=== PATIENT | female | born 1950 | race Caucasian/White ===

== ENCOUNTER 2022-06-07 12:09 | Inpatient (IN) | payer MEDICARE, MEDICAID ==
[~2022-06-07] VITALS: Ht 165.1 cm; Wt 68.7 kg
[~2022-06-07 12:09] MED LIST: CLOZ100T68 PO; DIVA-112 PO; LITH300T4 PO; NOCURR; PARO40TA PO; RISP1TAB48 PO; RISP4TAB73 PO
[2022-06-07] MEDS ORDERED: AMLO-257 PO (14:01)
[2022-06-07] MEDS ORDERED: RISP1SOL11 PO (14:01)
[2022-06-07] MEDS ORDERED: MULT-660 PO (14:01)
[2022-06-07] MEDS ORDERED: CLON-592 PO (14:01)
[2022-06-07] MEDS ORDERED: SENN-187 PO (14:01)
[2022-06-07] MEDS ORDERED: CRAN450T10 PO (14:01)
[2022-06-07] MEDS ORDERED: VITA400T9 PO (14:01)
[2022-06-07] MEDS ORDERED: ARIP400S3 IM (14:01)
[2022-06-07] MEDS ORDERED: BENZ0.5T49 PO (14:01)
[2022-06-07] MEDS ORDERED: PALI234D IM (14:01)
[2022-06-07] MEDS ORDERED: LEVO25TA9 PO ×2 (14:01)
[2022-06-07] MEDS ORDERED: METO-558 PO (14:01)
[2022-06-07] MEDS ORDERED: HALOPERIDOL LACTATE 5 MG/ML VIAL IM ONE (14:15)
[2022-06-07] MEDS ORDERED: LORazepam 2 MG/ML VIAL IM ONE (14:15)
[2022-06-07] MEDS ORDERED: LORazepam 2 MG TABLET PO PRN (14:15)
[2022-06-07] MEDS ORDERED: HALOPERIDOL 5 MG TABLET PO PRN (14:15)
[2022-06-07] MEDS ORDERED: ZOLPIDEM TARTRATE 10 MG TABLET PO PRN (14:15)
[2022-06-07 14:52] LABS: BASOPHILS % (AUTO) 0.6 % (0.0-2.0); HEMATOCRIT 39.2 % (36-46); LYMPHOCYTES # (AUTO) 0.7 K/uL (1.0-4.8); LYMPHOCYTES % (AUTO) 20.6 % (22.0-44.0); MEAN CORPUSCULAR HEMOGLOBIN 29.4 pg (26.0-34.0); MEAN CORPUSCULAR HGB CONC 33.2 G/dL (31.0-37.0); MEAN CORPUSCULAR VOLUME 89 fL (80-100); MONOCYTES # (AUTO) 0.2 K/uL (0.1-1.0); MONOCYTES % (AUTO) 6.1 % (2.0-9.0); NEUTROPHILS # (AUTO) 2.5 K/uL (1.8-7.7); NEUTROPHILS % (AUTO) 71.7 % (40.0-70.0); PLATELET COUNT (AUTO) 157 K/uL (150-450); RED BLOOD CELL COUNT(AUTO) 4.42 MIL/uL (4.00-5.20); RED CELL DISTRIBUTION WIDTH 13.7 % (11.5-14.5)
[2022-06-07 15:12] LABS: COVID AG,FIA SOURCE NASAL SWAB
[2022-06-07 15:12] LABS: AMPHET/METH SCREEN,URINE NEGATIVE (NEGATIVE); BARBITURATE SCREEN, URINE NEGATIVE (NEGATIVE); BENZODIAZEPINES SCREEN,URINE NEGATIVE (NEGATIVE); CANNABINOID SCREEN,URINE NEGATIVE (NEGATIVE); COCAINE SCREEN,URINE NEGATIVE (NEGATIVE); METHADONE SCREEN, URINE NEGATIVE (NEGATIVE); OPIATE SCREEN,URINE NEGATIVE (NEGATIVE)
[2022-06-07 15:13] LABS: PHENCYCLIDINE SCREEN,URINE NEGATIVE (NEGATIVE)
[2022-06-07 15:15] LABS: ANION GAP 4 mmol/L (8-16); CALCIUM, TOTAL 8.9 mg/dL (8.8-10.5); CARBON DIOXIDE 30 mmol/L (22-29); CHLORIDE 106 mmol/L (98-107); GLUCOSE,RANDOM 102 mg/dL (70-110); POTASSIUM 4.4 mmol/L (3.5-5.1); SODIUM SERUM 140 mmol/L (136-145); UREA NITROGEN, BLOOD 7 mg/dL (7-18)
[2022-06-07 15:16] LABS: GLOMERULAR FILTR. RATE CALC > 60 mL/min (>60)
[2022-06-07 15:21] LABS: ALANINE AMINOTRANSFERASE 27 U/L (12-78); ALBUMIN 3.7 g/dL (3.4-5.0); ALKALINE PHOSPHATASE 75 U/L (46-116); ASPARTATE AMINOTRANSFERASE 19 U/L (15-37); BILIRUBIN,TOTAL 0.2 mg/dL (0.1-1.0); TOTAL PROTEIN, SERUM 7.1 g/dL (6.4-8.2)
[2022-06-07 18:32] VITALS: BP 146/67
[2022-06-07 20:08] VITALS: BP 123/59
[2022-06-07] MEDS ORDERED: DOCUSATE SODIUM 100 MG CAPSULE PO PRN (20:30)
[2022-06-07] MEDS ORDERED: LOPERAMIDE HCL 2 MG CAPSULE PO PRN (20:30)
[2022-06-07] MEDS ORDERED: NICOTINE 14 MG/24 HOUR PATCH TD PRN (20:30)
[2022-06-07] MEDS ORDERED: MAG HYDROX/AL HYDROX/SIMETH ES 30 ML SUSPENSION UDCUP PO PRN (20:30)
[2022-06-07] MEDS ORDERED: MAGNESIUM HYDROXIDE SUSPENSION 30 ML UDCUP PO PRN (20:30)
[2022-06-07] MEDS ORDERED: ONDANSETRON HCL 4 MG TABLET PO PRN (20:30)
[2022-06-07] MEDS ORDERED: ALBUTEROL SULFATE HFA 90 MCG/PUFF 8 GM INHALER IH PRN (20:30)
[2022-06-07] MEDS ORDERED: ACETAMINOPHEN 325 MG TABLET PO PRN (20:30)
[2022-06-07] MEDS ORDERED: PETROLATUM,WHITE 28 GM JELLY TP PRN (20:30)
[2022-06-07] MEDS ORDERED: CloNIDine HCL 0.1 MG TABLET PO PRN (20:30)
[2022-06-07] MEDS ORDERED: GuaiFENesin/D-METHORPHAN [SUGAR-FREE] 200-20MG/10 ML SYRUP UDCUP PO PRN (20:30)
[2022-06-07] MEDS ORDERED: IBUPROFEN 400 MG TABLET PO PRN (20:30)
[2022-06-08] MEDS: LEVOTHYROXINE SODIUM 25 MCG TABLET PO SCH (06:30)
[2022-06-08] MEDS: AmLODIPine BESYLATE 5 MG TABLET PO SCH ×2 (08:37→08:46)
[2022-06-08] MEDS: METOPROLOL SUCCINATE 50 MG ER TABLET PO SCH ×2 (08:37→08:46)
[2022-06-08 09:31] VITALS: BP 134/65
[2022-06-08] MEDS ORDERED: RisperiDONE CONC 3 MG/3 ML SOLUTION ORAL.SYG PO SCH (11:45)
[2022-06-08] MEDS ORDERED: ARIPiprazole ER SUSPENSION 400 MG PRE-FILLED DUAL CHAMBER SYRINGE IM ONE (11:45)
[2022-06-08] MEDS: RisperiDONE 3 MG TABLET PO SCH ×2 (12:00→12:23)
[2022-06-08] MEDS ORDERED: HALOPERIDOL LACTATE 5 MG/ML VIAL IM PRN (12:00)
[2022-06-08] MEDS: ClonazePAM 0.5 MG TABLET PO SCH ×2 (16:48→17:00)
[2022-06-08] MEDS: BENZTROPINE MESYLATE 0.5 MG TABLET PO SCH ×2 (16:48→17:00)
[2022-06-08] MEDS ORDERED: ClonazePAM 0.5 MG TABLET PO SCH (17:00)
[2022-06-08] MEDS ORDERED: BENZTROPINE MESYLATE 1 MG TABLET PO SCH (17:00)
[2022-06-08 20:42] VITALS: BP 130/61
[2022-06-09] MEDS: LEVOTHYROXINE SODIUM 25 MCG TABLET PO SCH (06:12)
[2022-06-09 08:07] VITALS: BP 134/65
[2022-06-09] MEDS: AmLODIPine BESYLATE 5 MG TABLET PO SCH (08:41)
[2022-06-09] MEDS: BENZTROPINE MESYLATE 0.5 MG TABLET PO SCH ×2 (08:41→16:08)
[2022-06-09] MEDS: METOPROLOL SUCCINATE 50 MG ER TABLET PO SCH (08:41)
[2022-06-09] MEDS: RisperiDONE 3 MG TABLET PO SCH (08:42)
[2022-06-09] MEDS: ClonazePAM 0.5 MG TABLET PO SCH ×2 (08:42→16:01)
[2022-06-09] MEDS: BACITRACIN 28 GM OINTMENT TP SCH ×2 (11:42→16:00)
[2022-06-09 20:13] VITALS: BP 128/62
[2022-06-10] MEDS: LEVOTHYROXINE SODIUM 25 MCG TABLET PO SCH (06:34)
[2022-06-10 08:07] VITALS: BP 115/60
[2022-06-10] MEDS: BENZTROPINE MESYLATE 0.5 MG TABLET PO SCH ×2 (08:20→16:11)
[2022-06-10] MEDS: METOPROLOL SUCCINATE 50 MG ER TABLET PO SCH (08:20)
[2022-06-10] MEDS: ClonazePAM 0.5 MG TABLET PO SCH ×2 (08:20→16:11)
[2022-06-10] MEDS: AmLODIPine BESYLATE 5 MG TABLET PO SCH (08:20)
[2022-06-10] MEDS: RisperiDONE 3 MG TABLET PO SCH (08:20)
[2022-06-10] MEDS: BACITRACIN 28 GM OINTMENT TP SCH ×2 (08:26→16:12)
[2022-06-10 20:08] VITALS: BP 102/60
[2022-06-11] MEDS: LEVOTHYROXINE SODIUM 25 MCG TABLET PO SCH (06:22)
[2022-06-11 08:08] VITALS: BP 125/74
[2022-06-11] MEDS: AmLODIPine BESYLATE 5 MG TABLET PO SCH (08:32)
[2022-06-11] MEDS: METOPROLOL SUCCINATE 50 MG ER TABLET PO SCH (08:32)
[2022-06-11] MEDS: RisperiDONE 3 MG TABLET PO SCH (08:32)
[2022-06-11] MEDS: BENZTROPINE MESYLATE 0.5 MG TABLET PO SCH ×2 (08:32→16:35)
[2022-06-11] MEDS: BACITRACIN 28 GM OINTMENT TP SCH ×2 (08:34→16:36)
[2022-06-11] MEDS: ClonazePAM 0.5 MG TABLET PO SCH ×2 (08:34→16:35)
[2022-06-11 20:07] VITALS: BP 138/65
[2022-06-12] MEDS: LEVOTHYROXINE SODIUM 25 MCG TABLET PO SCH (06:05)
[2022-06-12 08:22] VITALS: BP 121/59
[2022-06-12] MEDS: ClonazePAM 0.5 MG TABLET PO SCH ×2 (08:45→16:03)
[2022-06-12] MEDS: BENZTROPINE MESYLATE 0.5 MG TABLET PO SCH ×2 (08:45→16:03)
[2022-06-12] MEDS: RisperiDONE 3 MG TABLET PO SCH (08:45)
[2022-06-12] MEDS: AmLODIPine BESYLATE 5 MG TABLET PO SCH (08:45)
[2022-06-12] MEDS: BACITRACIN 28 GM OINTMENT TP SCH ×2 (08:46→16:05)
[2022-06-12] MEDS: METOPROLOL SUCCINATE 50 MG ER TABLET PO SCH (08:46)
[2022-06-12 21:26] VITALS: BP 120/67
[2022-06-13] MEDS: LEVOTHYROXINE SODIUM 25 MCG TABLET PO SCH (06:32)
[2022-06-13 07:56] LABS: GLUCOMETER DEV NAME(LOC) POC.BV
[2022-06-13 08:03] VITALS: BP 132/63
[2022-06-13] MEDS: BENZTROPINE MESYLATE 0.5 MG TABLET PO SCH ×2 (08:53→16:49)
[2022-06-13] MEDS: RisperiDONE 3 MG TABLET PO SCH (08:53)
[2022-06-13] MEDS: ClonazePAM 0.5 MG TABLET PO SCH ×2 (08:53→16:49)
[2022-06-13] MEDS: AmLODIPine BESYLATE 5 MG TABLET PO SCH (08:53)
[2022-06-13] MEDS: METOPROLOL SUCCINATE 50 MG ER TABLET PO SCH (08:54)
[2022-06-13] MEDS: BACITRACIN 28 GM OINTMENT TP SCH ×2 (08:54→16:50)
[2022-06-13 20:03] VITALS: BP 110/60
[2022-06-14] MEDS: LEVOTHYROXINE SODIUM 25 MCG TABLET PO SCH (06:50)
[2022-06-14 08:14] VITALS: BP 131/67
[2022-06-14] MEDS: RisperiDONE 3 MG TABLET PO SCH (08:39)
[2022-06-14] MEDS: BENZTROPINE MESYLATE 0.5 MG TABLET PO SCH ×2 (08:39→17:36)
[2022-06-14] MEDS: METOPROLOL SUCCINATE 50 MG ER TABLET PO SCH (08:39)
[2022-06-14] MEDS: AmLODIPine BESYLATE 5 MG TABLET PO SCH (08:39)
[2022-06-14] MEDS: ClonazePAM 0.5 MG TABLET PO SCH ×2 (08:39→17:00)
[2022-06-14] MEDS: BACITRACIN 28 GM OINTMENT TP SCH ×2 (08:39→17:10)
[2022-06-14 20:03] VITALS: BP 127/45
[2022-06-15] MEDS: LEVOTHYROXINE SODIUM 25 MCG TABLET PO SCH (06:24)
[2022-06-15 08:49] VITALS: BP 129/74
[2022-06-15] MEDS: BENZTROPINE MESYLATE 0.5 MG TABLET PO SCH ×2 (09:29→17:32)
[2022-06-15] MEDS: AmLODIPine BESYLATE 5 MG TABLET PO SCH (09:29)
[2022-06-15] MEDS: METOPROLOL SUCCINATE 50 MG ER TABLET PO SCH (09:29)
[2022-06-15] MEDS: RisperiDONE 3 MG TABLET PO SCH (09:29)
[2022-06-15] MEDS: ClonazePAM 0.5 MG TABLET PO SCH ×2 (09:29→17:32)
[2022-06-15] MEDS: BACITRACIN 28 GM OINTMENT TP SCH ×2 (09:33→17:47)
[2022-06-15 20:23] VITALS: BP 111/57
[2022-06-16] MEDS: LEVOTHYROXINE SODIUM 25 MCG TABLET PO SCH (06:21)
[2022-06-16 08:14] VITALS: BP 113/62
[2022-06-16] MEDS: RisperiDONE 3 MG TABLET PO SCH (08:30)
[2022-06-16] MEDS: METOPROLOL SUCCINATE 50 MG ER TABLET PO SCH (08:30)
[2022-06-16] MEDS: BENZTROPINE MESYLATE 0.5 MG TABLET PO SCH ×2 (08:30→16:14)
[2022-06-16] MEDS: ClonazePAM 0.5 MG TABLET PO SCH ×2 (08:30→16:14)
[2022-06-16] MEDS: AmLODIPine BESYLATE 5 MG TABLET PO SCH (08:30)
[2022-06-16] MEDS: BACITRACIN 28 GM OINTMENT TP SCH ×2 (08:31→16:14)
[2022-06-16 20:05] VITALS: BP 108/60
[2022-06-17] MEDS: LEVOTHYROXINE SODIUM 25 MCG TABLET PO SCH (06:13)
[2022-06-17 08:23] VITALS: BP 109/69
[2022-06-17] MEDS: METOPROLOL SUCCINATE 50 MG ER TABLET PO SCH (08:48)
[2022-06-17] MEDS: ClonazePAM 0.5 MG TABLET PO SCH ×2 (08:48→16:45)
[2022-06-17] MEDS: BENZTROPINE MESYLATE 0.5 MG TABLET PO SCH ×2 (08:48→16:45)
[2022-06-17] MEDS: RisperiDONE 3 MG TABLET PO SCH ×2 (08:49→16:45)
[2022-06-17] MEDS: BACITRACIN 28 GM OINTMENT TP SCH ×2 (08:50→16:48)
[2022-06-17] MEDS: AmLODIPine BESYLATE 5 MG TABLET PO SCH (09:06)
[2022-06-17 16:02] VITALS: BP 110/66
[2022-06-17 21:11] VITALS: BP 109/69
[2022-06-18] MEDS: LEVOTHYROXINE SODIUM 25 MCG TABLET PO SCH (06:21)
[2022-06-18 08:30] VITALS: BP 108/61
[2022-06-18] MEDS: BENZTROPINE MESYLATE 0.5 MG TABLET PO SCH ×2 (08:55→17:00)
[2022-06-18] MEDS: RisperiDONE 3 MG TABLET PO SCH ×2 (08:56→17:00)
[2022-06-18] MEDS: AmLODIPine BESYLATE 5 MG TABLET PO SCH (08:56)
[2022-06-18] MEDS: ClonazePAM 0.5 MG TABLET PO SCH ×2 (08:56→19:04)
[2022-06-18] MEDS: METOPROLOL SUCCINATE 50 MG ER TABLET PO SCH (08:56)
[2022-06-18] MEDS: BACITRACIN 28 GM OINTMENT TP SCH ×2 (09:00→16:35)
[2022-06-18 17:51] VITALS: BP 120/56
[2022-06-18 23:00] VITALS: BP 118/52
[2022-06-19] MEDS: LEVOTHYROXINE SODIUM 25 MCG TABLET PO SCH (06:26)
[2022-06-19] MEDS ORDERED: PALIPERIDONE PALMITATE 234 MG/1.5 ML SYRINGE IM ONE (09:00)
[2022-06-19] MEDS ORDERED: ARIPiprazole ER SUSPENSION 400 MG PRE-FILLED DUAL CHAMBER SYRINGE IM SCH (09:00)
[2022-06-19] MEDS: AmLODIPine BESYLATE 5 MG TABLET PO SCH (09:00)
[2022-06-19] MEDS: METOPROLOL SUCCINATE 50 MG ER TABLET PO SCH (09:00)
[2022-06-19] MEDS: RisperiDONE 3 MG TABLET PO SCH ×2 (09:19→16:29)
[2022-06-19] MEDS: ClonazePAM 0.5 MG TABLET PO SCH ×2 (09:19→16:28)
[2022-06-19] MEDS: BENZTROPINE MESYLATE 0.5 MG TABLET PO SCH ×2 (09:22→16:29)
[2022-06-19] MEDS: BACITRACIN 28 GM OINTMENT TP SCH ×2 (09:25→16:30)
[2022-06-19 09:27] VITALS: BP 109/54
[2022-06-19] MEDS ORDERED: RISP3TAB35 PO (13:15)
[2022-06-19 16:26] VITALS: BP 116/58
[2022-06-19 20:00] VITALS: BP 108/51
[2022-06-20] MEDS: LEVOTHYROXINE SODIUM 25 MCG TABLET PO SCH (06:34)
[2022-06-20 07:40] LABS: GLUCOMETER DEV NAME(LOC) POC.BV
[2022-06-20 09:16] VITALS: BP 128/55
[2022-06-20] MEDS: ClonazePAM 0.5 MG TABLET PO SCH (09:18)
[2022-06-20] MEDS: AmLODIPine BESYLATE 5 MG TABLET PO SCH (09:18)
[2022-06-20] MEDS: RisperiDONE 3 MG TABLET PO SCH (09:18)
[2022-06-20] MEDS: BACITRACIN 28 GM OINTMENT TP SCH (09:20)
[2022-06-20] MEDS: BENZTROPINE MESYLATE 0.5 MG TABLET PO SCH (09:30)
[2022-06-20] MEDS: METOPROLOL SUCCINATE 50 MG ER TABLET PO SCH (09:31)
[2022-07-06] MEDS ORDERED: ARIPiprazole ER SUSPENSION 400 MG PRE-FILLED DUAL CHAMBER SYRINGE IM SCH (09:00)
== END 2022-06-20 10:00 | DRG 885 ==
LOC: EMS 12:40 → B2X 15:57
PROVIDERS: ADMIT Psychiatry & Neurology Child & Adolescent Psychiatry; ATTEND Psychiatry & Neurology Child & Adolescent Psychiatry
DX: F20.0 Paranoid schizophrenia (principal); E03.9 Hypothyroidism, unspecified; F17.200 Nicotine dependence, unspecified, uncomplicated; I10 Essential (primary) hypertension; K21.9 Gastro-esophageal reflux disease without esophagitis; G47.00 Insomnia, unspecified; F32.A Depression, unspecified; F41.9 Anxiety disorder, unspecified; Z20.822 Contact with and (suspected) exposure to COVID-19; Z23 Encounter for immunization; Z59.00 Homelessness unspecified; Z91.199 Patient's noncompliance with other medical treatment and regimen due to unspecified reason; Z79.899 Other long term (current) drug therapy; Z88.1 Allergy status to other antibiotic agents; Z88.2 Allergy status to sulfonamides
CPT/HCPCS: 80053; 80307; 84703; 85025; 99285; G0480; J0401; J1630; J2060